=== PATIENT | female | born 1995 | race Two or more races ===

== ENCOUNTER 2018-08-20 20:06 | Emergency (ER) | payer OTHER ==
[2018-08-20 20:18] VITALS: BP 110/69
[2018-08-20] MEDS ORDERED: LIDOCAINE 1% INJ-PF (10 MG/ML) 30 ML SDV INJ ONE (21:43)
[2018-08-20] MEDS ORDERED: DIPH/PERTUSS(ACELL)/TETANUS VAC/PF 0.5 ML SYR (>=10YO) IM ONE (21:43)
--- NOTE | 2018-08-20 23:25 | ER Document Report ---
HPI - HPI Time Seen by Provider: 08/20/18 21:43 Pain Level: 4 Notes: Patient is a 22-year-old female who presents to the emergency department complaining of laceration to her neck. She states that she was walking through her house with a razor-like eyebrow tool in her hand when it fell striking her neck and causing the laceration. She reports this happened just prior to arrival. 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 - CONSTITUTIONAL Constitutional: DENIES: Fever, Chills - REPRODUCTIVE Reproductive: DENIES: : Past Medical History - General Information source: Patient - Social History Smoking Status: Never Smoker Frequency of alcohol use: None Drug Abuse: None Family History: Reviewed & Not Pertinent Patient has suicidal ideation: No Patient has homicidal ideation: No - Medical History Medical History: Negative Pulmonary Medical History: Reports: Hx Asthma Renal/ Medical History: Denies: Hx Peritoneal Dialysis Surgical Hx: Negative - Immunizations Immunizations up to date: Yes Hx Diphtheria, Pertussis, Tetanus Vaccination: Yes Vertical Provider Document - CONSTITUTIONAL Notes: PHYSICAL EXAMINATION: GENERAL: Well-appearing, well-nourished and in no acute distress. HEAD: Atraumatic, normocephalic. EYES: Pupils equal round extraocular movements intact, conjunctiva are normal. ENT: Nares patent NECK: Normal range of motion LUNGS: No respiratory distress Musculoskeletal: Normal range of motion NEUROLOGICAL: Normal speech, normal gait. PSYCH: Normal mood, normal affect. SKIN: Warm, Dry, normal turgor, no rashes or lesions noted. 3 cm superficial laceration noted to anterior right side of neck, no active bleeding noted, approximates well. - INFECTION CONTROL TRAVEL OUTSIDE OF THE [place] IN LAST 30 DAYS: No Course - Re-evaluation Re-evalutation: Laceration was repaired under sterile technique, see procedure note. Patient tolerated well. Patient instructed on proper care of laceration and instructed on suture removal time. - Vital Signs Vital signs: Temp Pulse Resp BP Pulse Ox 98.6 F 65 16 110/69 100 08/20/18 20:17 08/20/18 20:17 08/20/18 20:17 08/20/18 20:17 08/20/18 20:17 Procedures - Laceration/Wound Repair Neck Wound length (cm): 3 Wound's Depth, Shape: Superficial Laceration pre-procedure: Sterile PPE donned Anesthetic type: 1% Lidocaine Wound explored: Clean Wound Debrided: Minimal Wound Repaired With: Sutures Suture Size/Type: 6:0, Nylon Number of Sutures: 7 Post-procedure wound care: Sterile dressing applied Post-procedure NV exam normal: Yes Complications: No Discharge - Discharge Clinical Impression: Laceration Condition: Stable Disposition: HOME, SELF-CARE Additional Instructions: Laceration Care Your laceration has been sutured to keep the skin edges aligned during healing. The time of suture removal depends on the nature and location of your cut. Please follow the care instructions the doctor has outlined for you and return for further care, according to the schedule you've been given. Keep the wound and dressing clean. Unless you were told otherwise, you may shower daily, blotting the wound dry with a clean, unused towel. At other times, If the dressing gets wet or blood soaked, remove it and blot the wound dry, then reapply a new dressing. Unless you were instructed otherwise, dressings should be changed at least daily. If any signs of infection occur (swelling, redness, increasing tenderness, red streaks, tender lumps in the armpit or groin above the laceration, or fever), see the doctor immediately. Please return to the emergency department or your primary care provider in 6-8 days for suture removal. Please return earlier if you develop any signs of infection such as increased redness, swelling, foul-smelling drainage or fever.
== END 2018-08-21 00:10 | disposition home or self-care (01) ==
LOC: ER 20:06
PROC: 0HQ4XZZ Repair Neck Skin, External Approach (ICD-10-PCS; principal; 2018-08-20)
DX: S11.91XA Laceration without foreign body of unspecified part of neck, initial encounter (principal); W26.8XXA Contact with other sharp object(s), not elsewhere classified, initial encounter; J45.909 Unspecified asthma, uncomplicated
CPT/HCPCS: 99282; 90471; 90715; 12002; J3490